=== PATIENT | female | born 1990 | race Caucasian/White ===

== ENCOUNTER → 2017-12-03 | Outpatient (REF) | payer OTHER ==
[2017-12-04 17:45] LABS: CHLAMYDIA DNA AMPLIFICATION POSITIVE (NEGATIVE); GC DNA AMPLIFICATION NEGATIVE (NEGATIVE)
== END ==
LOC: M SFHCLERA 17:40
DX: Z20.2 Contact with and (suspected) exposure to infections with a predominantly sexual mode of transmission (principal)
CPT/HCPCS: 87086; 87591